=== PATIENT | male | born 1950 | race Caucasian/White ===

== ENCOUNTER 2020-01-03 06:00 | Day surgery (SDC) | payer MEDICARE, OTHER ==
[~2020-01-03] VITALS: Ht 188 cm; Wt 88.5 kg
[~2020-01-03 06:00] MED LIST: ALBU90OI INH; ALBU90OI6 INH; ALPR.5 PO; ASCO500 PO; BUDE.25 INH; CENTRUM SILVER1 EAC2 PO; CEPH500 PO; DOCU100 PO; EYE VITAMIN PO; IBUP800; LISI20 PO; Lipitor20 MG PO; Lisinopril-Hct1 EAC4 PO; Norco 7.5-3251 EACH PO; PULMICORT INH; Percocet 5-3251 EACH PO; Prinivil10 MG; Pulmicort Fle180 MCG; UNKNOWN BP MED; VITAMIN D325 MC3 PO; WARF4 PO
--- NOTE | 2020-01-03 06:33 | NUR ---
PT ADMITTED TO [facility]. AGREES WITH PLANNED SURGERY. LUNG SOUNDS CLEAR.
--- NOTE | 2020-01-03 06:57 | NUR ---
NOZIN TO NARES BILATERALLY PER ORDER.
[2020-01-03] MEDS ORDERED: Pulmicort Fle180 MCG INH (07:44)
--- NOTE | 2020-01-03 10:18 | NUR ---
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 STRAIGHT CATH NOT INDICATED."
--- NOTE | 2020-01-03 12:43 | NUR ---
1045 arived to room pt able to slightly move right toes though is unable to tell he is moving them. numbness from hips down. pt reports no pain or nausea
--- NOTE | 2020-01-03 12:44 | NUR ---
movemtn pt able to move bilat legs. pt reports some numbness present from knees down. pt denies pain or nausea.
--- NOTE | 2020-01-03 14:01 | NUR ---
sitting on edge of bed to wotk with therapy
--- NOTE | 2020-01-03 17:51 | NUR ---
SUMMARY PT REPORTS LEFT HIP PAIN IS 2-3 WHICH IS ACCEPTABLE LEVEL. SITTING UP IN CHAIR,HAS AMBULATED AND STEADY ON FEET. PT DENIES ANY NUMBNESS TO LEGS. ELKE PO FOOD AND FLUIDS AND VOIDING CLEAR YELLOW URINE
[2020-01-04 04:52] LABS: BASOPHILS ABSOLUTE AUTO 0.02 K/mm3 (0.00-0.23); BASOPHILS PERCENT AUTO 0 % (0-2); EOSINOPHILS ABSOLUTE AUTO 0.05 K/mm3 (0.00-0.68); EOSINOPHILS PERCENT AUTO 1 % (0-6); Hematocrit 35.5 % (37.0-53.0); Hemoglobin 11.8 g/dL (13.5-17.5); IMMATURE GRAN ABSOLUTE AUTO 0.06 K/mm3 (0.00-0.10); IMMATURE GRAN PERCENT AUTO 1 % (0-1); LYMPHOCYTES ABSOLUTE AUTO 1.82 K/mm3 (0.84-5.20); LYMPHOCYTES PERCENT AUTO 20 % (21-46); MONOCYTES ABSOLUTE AUTO 0.86 K/mm3 (0.16-1.47); MONOCYTES PERCENT AUTO 10 % (4-13); Mean Corpuscular HGB 32.2 pg (26.0-34.0); Mean Corpuscular HGB Conc 33.2 g/dL (31.5-36.5); Mean Corpuscular Volume 97 fL (80-100); Mean Platelet Volume 9.5 fL (9.1-12.4); NEUTROPHILS ABSOLUTE AUTO 6.17 K/mm3 (1.96-9.15); NEUTROPHILS PERCENT AUTO 69 % (41-73); Platelet Count 272 K/mm3 (150-400); RDW Coefficient Variation 12.4 % (11.7-14.2); RDW Standard Deviation 44.4 fL (35.1-46.3); Red Blood Cell Count 3.66 M/mm3 (4.30-5.90); White Blood Cell Count 8.98 K/mm3 (4.00-11.30)
[2020-01-04 05:09] LABS: Anion Gap 6 mmol/L (6-16); Blood Urea Nitrogen 17 mg/dL (8-24); Bun/Creatinine Ratio 21.1 (12.0-20.0); CO2, Blood 25 mmol/L (21-32); Calcium, Blood 8.2 mg/dL (8.5-10.1); Chloride, Blood 107 mmol/L (98-108); Creatinine, Blood 0.81 mg/dL (0.60-1.20); Glomerular Filtration Rate >60 (60-); Glucose, Blood 100 mg/dL (70-99); Magnesium, Blood 1.9 mg/dL (1.6-2.4); Potassium, Blood 3.8 mmol/L (3.5-5.5); Sodium, Blood 138 mmol/L (136-145)
--- NOTE | 2020-01-04 06:21 | NUR ---
SHIFT SUMMARY POD 1 L ANTONIETA [id number], VSS. PT REPORTS PAIN MANAGED PER EMAR. HIP IS STIFF UPON FIRST STANDING BUT PT AMBULATES WELL AND FOLLOWS PRECAUTIONS. TOLERATING PO WELL AND VOIDING. PLAN IS TO WORK WITH THERAPY AND POSSIBLY DISCHARGE.
[2020-01-04] MEDS ORDERED: ASPI325 PO (10:38)
[2020-01-04] MEDS ORDERED: ROXICODONE5 MG PO (10:47)
[2020-01-04] MEDS ORDERED: PROM25 PO (10:48)
[2020-01-04] MEDS ORDERED: SULTRIDS PO (10:48)
--- NOTE | 2020-01-04 13:10 | NUR ---
PATIENT D/C'D HOME WITH SPOUSE AT THIS TIME; BOTH STATE UNDERSTANDING OF MEDS, ACTIVITY, WOUND CARE, F/U APPT, OP PT, ETC. PATIENT STATES PAIN CONTROLLED, TOLERATING PO, VOIDING. NO ACUTE CHANGES OR C/O.
== END 2020-01-04 13:05 | disposition home or self-care (01) ==
LOC: ORSCMMR 06:00 → ORD 07:30 → SURS 10:44 → ORD 10:45 → SURS 01-04 13:05 → ORSCMMR 01-04 13:05
PROVIDERS: Orthopaedic Surgery
PROC: 8E0YXBZ Computer Assisted Procedure of Lower Extremity (ICD-10-PCS; principal; 2020-01-03 07:30)
PROC: 0SRB0JA Replacement of Left Hip Joint with Synthetic Substitute, Uncemented, Open Approach (ICD-10-PCS; principal; 2020-01-03 07:30)
DX: M16.12 Unilateral primary osteoarthritis, left hip (principal); I10 Essential (primary) hypertension; J45.909 Unspecified asthma, uncomplicated; Z79.899 Other long term (current) drug therapy; Z79.82 Long term (current) use of aspirin
CPT/HCPCS: 36415; 72170; 80048; 83735; 85025; 88300; 97110; 97112; 97116; 97161; 97166; 97535; A9270-GY; C1713; C1776; J0171; J0690; J0735; J1100; J1885; J2250; J2405; J2704; J2795; J3010; J3370; J7120

== ENCOUNTER 2021-02-20 10:15 | Day surgery (SDC) | payer MEDICARE, OTHER ==
[~2021-02-20] VITALS: Ht 188 cm; Wt 92.8 kg
[~2021-02-20 10:15] MED LIST changes: +ASPI325 PO; +PROM25 PO; +Pulmicort Fle180 MCG INH; +ROXICODONE5 MG PO; +SULTRIDS PO
--- NOTE | 2021-02-20 10:41 | NUR ---
02/20/21 1041 Araceli Hawthorne CALL LIGHT WITHIN REACH. TERRY 1035 WITH TETRACAIN PLACED AT 1032
== END 2021-02-20 12:20 | disposition home or self-care (01) ==
LOC: ORSCSDS 10:15
PROVIDERS: Ophthalmology
PROC: 08RK3JZ Replacement of Left Lens with Synthetic Substitute, Percutaneous Approach (ICD-10-PCS; principal; 2021-02-20 11:30)
DX: H25.12 Age-related nuclear cataract, left eye (principal); I10 Essential (primary) hypertension; Z79.899 Other long term (current) drug therapy
CPT/HCPCS: J2001; J2250; J3010; J3301; J7040; V2632

== ENCOUNTER 2021-03-13 09:53 | Day surgery (SDC) | payer MEDICARE, OTHER ==
[~2021-03-13] VITALS: Ht 188 cm; Wt 94.4 kg
== END 2021-03-13 11:45 | disposition home or self-care (01) ==
LOC: ORSCSDS 09:53
PROVIDERS: Ophthalmology
PROC: 08RJ3JZ Replacement of Right Lens with Synthetic Substitute, Percutaneous Approach (ICD-10-PCS; principal; 2021-03-13 11:00)
DX: H25.11 Age-related nuclear cataract, right eye (principal); I10 Essential (primary) hypertension; J45.909 Unspecified asthma, uncomplicated; Z79.899 Other long term (current) drug therapy
CPT/HCPCS: J2001; J2250; J3010; J3301; J7040; V2632

== ENCOUNTER 2025-01-25 07:41 | Day surgery (SDC) | payer MEDICARE, OTHER ==
[~2025-01-25] VITALS: Ht 188 cm; Wt 88.1 kg
[2025-01-25 09:44] VITALS: BP 120/87
== END 2025-01-25 09:55 | disposition home or self-care (01) ==
LOC: ORSCSDS 07:41
PROVIDERS: Internal Medicine Gastroenterology
PROC: 0DBL8ZX Excision of Transverse Colon, Via Natural or Artificial Opening Endoscopic, Diagnostic (ICD-10-PCS; principal; 2025-01-25 09:15)
PROC: 0DBK8ZX Excision of Ascending Colon, Via Natural or Artificial Opening Endoscopic, Diagnostic (ICD-10-PCS; principal; 2025-01-25 09:15)
DX: Z12.11 Encounter for screening for malignant neoplasm of colon (principal); D12.2 Benign neoplasm of ascending colon; K63.5 Polyp of colon; K57.30 Diverticulosis of large intestine without perforation or abscess without bleeding; Z86.0101 Personal history of adenomatous and serrated colon polyps; I10 Essential (primary) hypertension; J45.909 Unspecified asthma, uncomplicated; Z79.899 Other long term (current) drug therapy
CPT/HCPCS: 88305; J2704; J7120